=== PATIENT | female | born 1935 | race Caucasian/White ===

== ENCOUNTER → 2025-02-04 | Outpatient (CLI) | payer MEDICARE, SELFPAY ==
[2025-02-04 11:33] LABS: Basophils # (Auto) 0.1 Thou/mm3 (0.0-0.2); Basophils % (Auto) 1 % (0-2.5); Eosinophils # (Auto) 0.4 Thou/mm3 (0.0-0.5); Eosinophils % (Auto) 4 % (0-10); Hematocrit 43.5 % (36.0-46.0); Hemoglobin 14.6 g/dL (12.0-16.0); Immature Granulocytes % (Auto) 0 % (0-0); Immature Granulocytes Auto 0.02 Thou/mm3 (0.00-0.00); Lymphocytes # (Auto) 2.7 Thou/mm3 (1.0-4.8); Lymphocytes % (Auto) 29 % (10-50); Mean Corpuscular HGB Conc 33.6 g/dl (31.0-37.0); Mean Corpuscular Hemoglobin 31.1 pg (25.0-35.0); Mean Corpuscular Volume 93 fL (80-100); Monocytes # (Auto) 0.8 Thou/mm3 (0.0-0.8); Monocytes % (Auto) 8 % (0-12); Neutrophils # (Auto) 5.3 Thou/mm3 (1.8-7.7); Neutrophils % (Auto) 58 % (37-80); Nucleated Red Blood Cell % 0 /100 WBC (0); Platelet Count 234 Thou/mm3 (140-440); RDW Standard Deviation 43.7 fL (36.4-46.3); White Blood Count 9.2 Thou/mm3 (3.6-11.0)
[2025-02-04 11:54] LABS: Alanine Aminotransferase 25 U/L (10-49); Albumin, Serum 4.3 gm/dL (3.4-4.8); Alkaline Phosphatase 85 U/L (46-116); Anion Gap 7 (7-16); Aspartate Amino Transferase 26 U/L (0-34); BUN/Creatinine Ratio 24 Ratio (12-20); Bilirubin,Total 0.7 mg/dL (0.3-1.2); Blood Urea Nitrogen 24 mg/dL (9-23); Calcium 9.6 mg/dL (8.3-10.6); Calcium (Corrected) 9.6 mg/dL (8.5-10.1); Carbon Dioxide 26.5 mMol/L (20.0-31.0); Chloride 108 mMol/L (98-107); Cholesterol 173 mg/dL (132-200); Globulin 2.2 gm/dL (2.3-3.5); Glucose 155 mg/dL (74-106); HDL Cholesterol 43 mg/dL (40-60); LDL Cholesterol,Calculated 88 mg/dL (0-130); Osmolality,Calculated 288 (275-295); Potassium 4.2 mMol/L (3.4-5.1); Sodium 141 mMol/L (136-145); Total Protein 6.5 gm/dL (5.7-8.2); Triglycerides 209 mg/dL (30-150); eGFR 54 See Note
[2025-02-04 11:55] LABS: Vitamin B12 266 pg/mL (211-911)
== END | disposition home or self-care (01) ==
LOC: COPL 10:40
PROVIDERS: PCP Family Medicine; Referring Provider Family Medicine; Visit Provider Family Medicine
DX: E78.2 Mixed hyperlipidemia (principal); F01.50 Vascular dementia, unspecified severity, without behavioral disturbance, psychotic disturbance, mood disturbance, and anxiety; D64.9 Anemia, unspecified; I10 Essential (primary) hypertension
CPT/HCPCS: 36415; 80053; 80061; 82607; 85025

== ENCOUNTER → 2025-08-07 | Outpatient (CLI) | payer MEDICARE, SELFPAY ==
[2025-08-07 10:05] LABS: Glucose Estimated Average 151 mg/dL (80-131); Hemoglobin A1C 6.9 % Hgb (4.8-6.0)
[2025-08-07 10:13] LABS: Alanine Aminotransferase 24 U/L (10-49); Albumin, Serum 4.5 gm/dL (3.4-4.8); Albumin/Globulin Ratio 2.0 (1.2-2.2); Alkaline Phosphatase 85 U/L (46-116); Anion Gap 11 (7-16); Aspartate Amino Transferase 32 U/L (0-34); BUN/Creatinine Ratio 20 Ratio (12-20); Bilirubin,Total 0.7 mg/dL (0.3-1.2); Blood Urea Nitrogen 20 mg/dL (9-23); Calcium 10.1 mg/dL (8.3-10.6); Calcium (Corrected) 10.1 mg/dL (8.5-10.1); Carbon Dioxide 25.7 mMol/L (20.0-31.0); Cardiac Risk Estimate 4.1 RATIO (3.7-5.6); Chloride 108 mMol/L (98-107); Cholesterol 176 mg/dL (132-200); Creatinine (Component) 1.0 mg/dL (0.6-1.3); Free T4 (Free Thyroxine) 0.90 ng/dL (0.89-1.76); Globulin 2.2 gm/dL (2.3-3.5); Glucose 151 mg/dL (74-106); HDL Cholesterol 43 mg/dL (40-60); LDL Cholesterol,Calculated 91 mg/dL (0-130); Osmolality,Calculated 294 (275-295); Potassium 4.0 mMol/L (3.4-5.1); Sodium 145 mMol/L (136-145); Thyroid Stimulating Hormone 2.87 uIU/mL (0.55-4.78); Total Protein 6.7 gm/dL (5.7-8.2); Triglycerides 208 mg/dL (30-150); eGFR 54 See Note
== END | disposition home or self-care (01) ==
LOC: COPL 08:51
PROVIDERS: PCP Family Medicine; Referring Provider Family Medicine; Visit Provider Family Medicine
DX: Z00.00 Encounter for general adult medical examination without abnormal findings (principal); R73.01 Impaired fasting glucose; I10 Essential (primary) hypertension; E78.2 Mixed hyperlipidemia; Z83.1 Family history of other infectious and parasitic diseases
CPT/HCPCS: 36415; 80053; 80061; 83036; 84439; 84443

== ENCOUNTER 2025-09-20 12:59 | Emergency (ER) | payer MEDICARE, SELFPAY ==
[2025-09-20 13:01] VITALS: PULSE 74; RESP 18; O2SAT 95
[2025-09-20 13:02] VITALS: BP 156/74; PULSE 74; RESP 20; TEMP 36.4; O2SAT 98
--- NOTE | 2025-09-20 13:23 | EKG_ITS ---
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[id number] Requested By: Shawn Sandy Order Number: [id number] Reading MD: Shawn Sandy Measurements Intervals [place] Rate: 107 P: 36 CO: 161 QRS: -11 QRSD: 73 T: 35 QT: 371 QTc: 497 Interpretive Statements SINUS TACHYCARDIA LOW QRS VOLTAGE IN PRECORDIAL LEADS [QRS DEFLECTION < 1.0 mV IN CHEST LEADS] PATTERN CONSISTENT WITH PULMONARY DISEASE INFERIOR MYOCARDIAL INFARCTION , OF INDETERMINATE AGE [40+ ms Q WAVE AND/OR ST/T ABNORMALITY IN II/aVF] Compared to ECG 02/26/2019 15:23:21 Low QRS voltage now present Myocardial infarct finding now present Sinus rhythm no longer present /store/S0/[id number].pdf
--- NOTE | 2025-09-20 13:23 | XR_ITS ---
EXAMINATION: AP chest lateral 2 views TECHNIQUE: AP lateral chest 2 views Date and time: September 20, 2025, 1409 hours INDICATIONS: Chest pain after falling today. FINDINGS: Mild prominence left ventricle. No pneumothorax. Clavicles ribs appear intact. IMPRESSION: No pneumothorax or pulmonary contusion
--- NOTE | 2025-09-20 13:25 | EDNOTE_ITS ---
<Statement entered by Jeanine Wise MD - 09/28/25 14:15> As co-signing physician, I was present and available for consult prn. I concur with the plan and care as documented by the midlevel provider. ED General RME/HPI General Chief complaint: Shortness of Breath/Dyspnea Stated complaint: SOB Time Seen by Provider: 09/20/25 13:22 Source: EMS Arrival date/time: 09/20/25 12:59 CC: Reported shortness of breath HPI patient with dementia presents to the ER via EMS reports stable vital signs after family member caretaker was commenting on the patient being short of breath and cyanotic . The patient is awake alert oriented EMS report initial sats 95% was given 2 breathing treatments and route after reported hearing the chest being tight . Patient does not know why she is here. Patient is awake alert oriented currently sats are 97% on room air. Related Data Home Medications ?Medication ?Instructions ?Recorded ?Confirmed cholecalciferol (vitamin D3) 50 2,000 unit PO QDAY 01/1502/27/19 mcg (2,000 unit) capsule (Vitamin D3) memantine ER 28 mg-donepezil 10 mg 1 cap PO QDAY 02/2603/07/19 capsule sprinkle,ext.release 24 hr (Namzaric) mirtazapine 30 mg tablet 30 mg PO QDAY 02/26/1903/07 sertraline 50 mg tablet 50 mg PO QDAY 02/26/1903/07 Previous Rx's ?Medication ?Instructions ?Recorded ibuprofen 600 mg tablet 600 mg PO TID pain #30 tabs 02/27/19 acetaminophen 500 mg tablet 1,000 mg (2 x 500 mg) PO Q ID PRN 07/26/20 (Tylenol Extra Strength) fever or pain #30 tabs Allergies Allergy/AdvReac Type Severity Reaction Status Date / Time bee venom protein (honey bee) Allergy Verified 09/20/25 13:03 Review of Systems Review of Systems ROS Unobtainable: unobtainable due to mental status Past Medical History Past Medical History NEUROLOGIC: Negative Neurological Disorders or Seizures CARDIAC: Negative Cardiac Disorders, Hypercholesterolemia or Congestive Heart Failure RESPIRATORY: Negative Chronic Obstructive Pulmonary Disease (COPD) GASTROINTESTINAL: Negative Gastrointestinal Disorders or Colorectal Cancer GENITOURINARY: Negative Genitourinary Disorders or Renal Disease REPRODUCTIVE: Positive Previous Pregnancies (2 vaginal births); Negative Breast Cancer MUSCULOSKELETAL: Positive Musculoskeletal Disorders and Fractures (pelivs fracture no surgery) ENDOCRINE: Negative Endocrine Disorders, Diabetes Mellitus Type 1 or Diabetes Mellitus Type 2 HEMATOLOGIC: Negative Blood Disorders or Anemia OTHER HISTORY: Negative Falls, Blood Transfusions, Blood Transfusion Reaction, Anesthesia Reactions, Breast Cancer, Cervical Cancer or Colorectal Cancer Family History FAMILY HISTORY: Negative Family Cardiac Disorders Surgical History SURGICAL: Positive Tubal Ligation; Negative Cardiac Surgery, Abdominal Surgery, Joint Replacement or Section Social History SMOKING STATUS: Never smoker ED Exam Narrative Physical exam: [General: Appears not in any acute distress Head normocephalic HEENT: Eyes pupils are PERRLA EOMs are intact mouth pink moist membranes uvula is midline. All of the subsystems of HEENT are within acceptable limits Neck is supple nontender, no JVD no edema Chest equal chest rise nontender to palpation Respiratory: Clear to auscultation no wheezes crackles or rubs, no tachypnea CV: Rate rhythm is regular no murmurs rubs or clicks Abdomen is soft nontender no masses positive bowel sounds all 4 quadrants Back: No CVA tenderness no spinous process tenderness from cervical spine thoracic and lumbar spine Skin: Intact no petechiae rash induration ulceration or crepitus Extremities: Moving all extremity against resistance cap refill less than 2 seconds neurosensory intact Neuro: Awake alert oriented x1, self, Glascow coma 15 no focal deficits] Course Course Course Narrative: Patient has had no respiratory symptoms throughout her visit the emergency room this time comfortable discharging home with oxygen saturations greater than 95% on room air Quality Measures none Orders Category Date Time Status EKG (ED ONLY) *Do not use* NOW Care 09/20/25 13:23 Completed EKG (ED Only) Stat Exams 09/20/25 13:23 Draft XR chest 2V Stat Exams 09/20/25 13:23 Completed B-Type Natriuretic Peptide Stat Lab 09/20/25 14:45 Completed CBC Stat Lab 09/20/25 14:45 Completed Comprehensive Metabolic Panel Stat Lab 09/20/25 14:45 Completed Drug Screen,Urine Stat Lab 09/20/25 14:31 Completed LDH (Lactate Dehydrogenase) Stat Lab 09/20/25 14:45 Completed Magnesium Stat Lab 09/20/25 14:45 Completed Partial Thromboplastin Time Stat Lab 09/20/25 14:45 Completed Prothrombin Time with INR Stat Lab 09/20/25 14:45 Completed Troponin I Stat Lab 09/20/25 14:45 Completed Urinalysis, C/S if Indicated Stat Lab 09/20/25 14:31 Completed Vital Signs Vital signs: Vital Signs Temperature 97.6 F 09/20/25 13:02 Pulse Rate 74 09/20/25 13:02 Respiratory Rate 20 09/20/25 13:02 Blood Pressure 156/74 H 09/20/25 13:02 Pulse Oximetry (%) 98 09/20/25 13:02 Oxygen Delivery Method Room Air 09/20/25 13:02 Discharge Plan Plan Patient Disposition: HOME (Self Care) Patient condition on transfer: Stable Prescriptions/Referrals Prescriptions/Med Rec: No Action mirtazapine 30 mg Tablet 30 mg PO QDAY sertraline 50 mg Tablet 50 mg PO QDAY cholecalciferol (vitamin D3) [Vitamin D3] 2,000 unit Capsule 2,000 unit PO QDAY Namzaric 28-10 mg Capsule,Sprinkle,Er 24hr 1 cap PO QDAY ibuprofen 600 mg tablet 600 mg PO TID Qty: 30 0RF acetaminophen [Tylenol Extra Strength] 500 mg tablet 1,000 mg PO QID PRN (Reason: fever or pain) Qty: 30 0RF Referrals: Timo Kumari MD [Primary Care Provider, Family Practice] - In 1 week Problem List Clinical Impression: Cough, Shortness of breath Patient/Caregiver Discharge Instructions Education Materials: ED Shortness of Breath (Dyspnea) Additional Instructions: Follow-up with your primary care doctor if there is a worsening of symptoms return the emergency room for reevaluation. Print Language: Faroese Stand Alone Forms: [employer]isi Award Info., Patient Portal Info Letter PA/FIELD MARKETING COORDINATOR Supervising Physician PA/FIELD MARKETING COORDINATOR Supervising Physician: Shawn Plascencia ENP [facility] Clinical Information Provided by: patient and EMS Medical Records reviewed [facility] and EMS Meds/Rx considered, not ordered None Labs/Rad/Tests considered, not ordered None Chronic Illness/Social Conditions Explain: Dementia EKG Interpretation EKG #1: EKG Interpretation: EKG performed at 1335 shows a ventricular rate of 107 WV interval 161 QRS of 73 QTc of 434 sinus tachycardia. Labs Labs: interpreted by ia Lab(s) Interpretation(s): CBC shows no acute leukocytosis anemia thrombocytopenia Coags within acceptable limits CMP shows a potassium of 3.3 glucose of 127 no other electrolyte imbalances renal impairment no transaminitis or T. bili elevation Troponin is unremarkable BNP is within acceptable limits Urine is negative for UTI UDS is negative Imaging Imaging interpretation: interpreted by me Imaging Interpretation(s): Chest x-ray is negative for any acute finding Medication Administration(s) none Diagnosis Differential Diagnosis ED Complaint MDM: COPD CHF pneumonia
--- NOTE | 2025-09-20 13:40 | PC.NURSE ---
Pt. here from home to room 18, pt.'s niece Edna is bedside, she states pt. has dementia and has 24 hour care at home, Edna states that pt.'s behavioral science chair called EMS because pt. started coughing and turned blue. Edna states pt. has not been coughing, Edna states yesterday she and pt. ate at [employer] and pt. was not coughing, they had a great day together. Edna states pt. loves chocolate. No s/s of distress noted at this time. Pt. not coughing at this time.
[2025-09-20 13:46] VITALS: BMI 22.4
[2025-09-20 14:35] LABS: Collection Type, Urine Clean Catch
[2025-09-20 14:52] LABS: Bilirubin,Urine Negative (Negative); Blood,Urine Negative (Negative); Clarity,Urine Clear (Clear/Hazy); Color,Urine Lt-Yellow (Lt Yel-Yel); Culture Indicated,Urine Not Indicated; Glucose, Urine Trace (Negative); Ketones,Urine Negative (Negative); Leukocyte Esterase,Urine Negative (Negative); Nitrite,Urine Negative (Negative); PH,Urine 6.0 (5.0-7.0); Protein,Urine Negative (Neg - Trace); RBC,Urine 1 /hpf (0-3); Specific Gravity,Urine 1.018 (1.001-1.035); Squamous Epithelial Cell,Urine < 1 /hpf (0-5); Urobilinogen,Urine Negative mg/dL (0.0-1.0); WBC,Urine < 1 /hpf (0-5)
[2025-09-20 14:55] LABS: Basophils # (Auto) 0.0 Thou/mm3 (0.0-0.2); Basophils % (Auto) 0 % (0-2.5); Eosinophils # (Auto) 0.1 Thou/mm3 (0.0-0.5); Eosinophils % (Auto) 2 % (0-10); Hematocrit 43.2 % (36.0-46.0); Hemoglobin 13.9 g/dL (12.0-16.0); Immature Granulocytes Auto 0.03 Thou/mm3 (0.00-0.00); Lymphocytes # (Auto) 1.7 Thou/mm3 (1.0-4.8); Lymphocytes % (Auto) 19 % (10-50); Mean Corpuscular HGB Conc 32.2 g/dl (31.0-37.0); Mean Corpuscular Hemoglobin 30.0 pg (25.0-35.0); Mean Corpuscular Volume 93 fL (80-100); Monocytes # (Auto) 0.7 Thou/mm3 (0.0-0.8); Monocytes % (Auto) 8 % (0-12); Neutrophils # (Auto) 6.3 Thou/mm3 (1.8-7.7); Neutrophils % (Auto) 71 % (37-80); Nucleated Red Blood Cell # 0.00 Thou/mm3 (0.00-0.00); Nucleated Red Blood Cell % 0 /100 WBC (0); Platelet Count 205 Thou/mm3 (140-440); RDW Standard Deviation 43.6 fL (36.4-46.3); Red Blood Count 4.64 Miln/mm3 (4.00-5.20); White Blood Count 9.0 Thou/mm3 (3.6-11.0)
[2025-09-20 15:03] LABS: Amphetamine/Methamp Scrn,U Negative (Negative); Barbiturate Screen,Urine Negative (Negative); Benzodiazepines Screen,Urine Negative (Negative); Benzoylecgonine Screen, Ur Negative (Negative); Fentanyl Screen,Urine Negative (Negative); Opiate Screen,Urine Negative (Negative); THC Screen,Urine Negative (Negative)
[2025-09-20 15:10] LABS: INR 1.1 (0.9-1.3); Partial Thromboplastin Time 30.8 Seconds (22.0-36.0); Prothrombin Time 11.3 Seconds (9.0-12.2)
[2025-09-20 15:12] LABS: B-Type Natriuretic Peptide 50 pg/mL (0-100)
[2025-09-20 15:13] LABS: Alanine Aminotransferase 30 U/L (10-49); Albumin, Serum 4.6 gm/dL (3.4-4.8); Albumin/Globulin Ratio 2.2 (1.2-2.2); Alkaline Phosphatase 89 U/L (46-116); Anion Gap 13 (7-16); Aspartate Amino Transferase 47 U/L (0-34); BUN/Creatinine Ratio 14 Ratio (12-20); Bilirubin,Total 0.6 mg/dL (0.3-1.2); Blood Urea Nitrogen 14 mg/dL (9-23); Calcium 9.8 mg/dL (8.3-10.6); Calcium (Corrected) 9.8 mg/dL (8.5-10.1); Carbon Dioxide 27.2 mMol/L (20.0-31.0); Chloride 104 mMol/L (98-107); Creatinine (Component) 1.0 mg/dL (0.6-1.3); Estimated Creatinine Clearance 35.0 mL/min (>60); Globulin 2.1 gm/dL (2.3-3.5); Glucose 127 mg/dL (74-106); LDH (Lactate Dehydrogenase) 164 U/L (120-246); Magnesium 2.1 mg/dL (1.6-2.6); Osmolality,Calculated 289 (275-295); Potassium 3.3 mMol/L (3.4-5.1); Sodium 144 mMol/L (136-145); Total Protein 6.7 gm/dL (5.7-8.2); Troponin I < 0.020 ng/mL (0.0-0.045); eGFR 54 See Note
[2025-09-20 16:19] VITALS: BP 163/79; PULSE 98; RESP 22; TEMP 36.4; O2SAT 98
[2025-09-20 17:25] VITALS: BP 168/97; PULSE 96; RESP 20; TEMP 36.6; O2SAT 97
== END 2025-09-20 17:29 | disposition home or self-care (01) ==
PROVIDERS: Registered Nurse General Practice; Emergency Provider Emergency Medicine; PCP Family Medicine
DX: R06.02 Shortness of breath (principal); R05.9 Cough, unspecified; F03.90 Unspecified dementia, unspecified severity, without behavioral disturbance, psychotic disturbance, mood disturbance, and anxiety; Z79.1 Long term (current) use of non-steroidal anti-inflammatories (NSAID)
CPT/HCPCS: 36415; 51701; 71046; 80053; 80307; 81001; 83615; 83735; 83880; 84484; 85025; 85610; 85730; 93005; 99282

== ENCOUNTER → 2025-11-11 | Outpatient (CLI) | payer MEDICARE, SELFPAY ==
[2025-11-11 09:00] LABS: Collection Type, Urine Clean Catch
[2025-11-11 09:51] LABS: Amorphous Crystals,Urine Present (Absent); Bacteria,Urine 1+; Bilirubin,Urine Negative (Negative); Blood,Urine 3+ (Negative); Calcium Oxalate Crystals,Urine 2+; Color,Urine Yellow (Lt Yel-Yel); Glucose, Urine Negative (Negative); Hyaline Casts,Urine < 1 /hpf (0-1); Ketones,Urine Negative (Negative); Leukocyte Esterase,Urine Positive (Negative); Nitrite,Urine Positive (Negative); PH,Urine 5.5 (5.0-7.0); Protein,Urine 1+ (Neg - Trace); RBC,Urine 195 /hpf (0-3); Specific Gravity,Urine 1.026 (1.001-1.035); Squamous Epithelial Cell,Urine 8 /hpf (0-5); Urobilinogen,Urine Negative mg/dL (0.0-1.0); WBC,Urine 257 /hpf (0-5)
[2025-11-11 10:36] LABS: Clarity,Urine Hazy (Clear/Hazy)
== END | disposition home or self-care (01) ==
LOC: SLDO 08:47
PROVIDERS: Referring Provider Family Medicine; Visit Provider Family Medicine
DX: R31.9 Hematuria, unspecified (principal); D55.9 Anemia due to enzyme disorder, unspecified; R41.0 Disorientation, unspecified
CPT/HCPCS: 81001; 87077; 87086; 87186

== ENCOUNTER → 2025-11-24 | Outpatient (CLI) | payer MEDICARE, SELFPAY ==
[2025-11-24 12:00] LABS: Basophils # (Auto) 0.0 Thou/mm3 (0.0-0.2); Basophils % (Auto) 0 % (0-2.5); Eosinophils # (Auto) 0.3 Thou/mm3 (0.0-0.5); Eosinophils % (Auto) 4 % (0-10); Hematocrit 45.5 % (36.0-46.0); Hemoglobin 14.5 g/dL (12.0-16.0); Immature Granulocytes Auto 0.04 Thou/mm3 (0.00-0.00); Lymphocytes # (Auto) 1.6 Thou/mm3 (1.0-4.8); Lymphocytes % (Auto) 20 % (10-50); Mean Corpuscular HGB Conc 31.9 g/dl (31.0-37.0); Mean Corpuscular Hemoglobin 29.8 pg (25.0-35.0); Mean Corpuscular Volume 93 fL (80-100); Monocytes # (Auto) 0.6 Thou/mm3 (0.0-0.8); Monocytes % (Auto) 8 % (0-12); Neutrophils # (Auto) 5.4 Thou/mm3 (1.8-7.7); Neutrophils % (Auto) 68 % (37-80); Nucleated Red Blood Cell # 0.00 Thou/mm3 (0.00-0.00); Nucleated Red Blood Cell % 0 /100 WBC (0); Platelet Count 280 Thou/mm3 (140-440); RDW Standard Deviation 45.7 fL (36.4-46.3); Red Blood Count 4.87 Miln/mm3 (4.00-5.20); White Blood Count 8.0 Thou/mm3 (3.6-11.0)
[2025-11-24 12:32] LABS: Alanine Aminotransferase 27 U/L (10-49); Albumin, Serum 4.3 gm/dL (3.4-4.8); Albumin/Globulin Ratio 1.7 (1.2-2.2); Alkaline Phosphatase 94 U/L (46-116); Anion Gap 13 (7-16); Aspartate Amino Transferase 45 U/L (0-34); BUN/Creatinine Ratio 15 Ratio (12-20); Bilirubin,Total 0.7 mg/dL (0.3-1.2); Blood Urea Nitrogen 16 mg/dL (9-23); Calcium 9.7 mg/dL (8.3-10.6); Calcium (Corrected) 9.7 mg/dL (8.5-10.1); Carbon Dioxide 26.3 mMol/L (20.0-31.0); Chloride 105 mMol/L (98-107); Creatinine (Component) 1.1 mg/dL (0.6-1.3); Free T4 (Free Thyroxine) 0.95 ng/dL (0.89-1.76); Globulin 2.6 gm/dL (2.3-3.5); Glucose 137 mg/dL (74-106); Osmolality,Calculated 290 (275-295); Potassium 4.5 mMol/L (3.4-5.1); Sodium 144 mMol/L (136-145); Thyroid Stimulating Hormone 2.36 uIU/mL (0.55-4.78); Total Protein 6.9 gm/dL (5.7-8.2); Vitamin B12 329 pg/mL (211-911); Vitamin D 25 Hydroxy Total 23.8 ng/mL (7.3-40.2); eGFR 48 See Note
[2025-11-24 12:46] LABS: Syphilis Nonreactive (Nonreactive)
== END | disposition home or self-care (01) ==
LOC: COPL 11:07
PROVIDERS: PCP Family Medicine; Referring Provider Family Medicine; Visit Provider Family Medicine
DX: R31.9 Hematuria, unspecified (principal); D55.9 Anemia due to enzyme disorder, unspecified; R41.0 Disorientation, unspecified
CPT/HCPCS: 36415; 80053; 81001; 82306; 82607; 84439; 84443; 85025; 86780; 87086

== ENCOUNTER → 2025-11-26 | Outpatient (CLI) | payer MEDICARE, SELFPAY ==
[2025-11-26 08:24] LABS: Collection Type, Urine Clean Catch
[2025-11-26 11:44] LABS: Amorphous Crystals,Urine Present (Absent); Bilirubin,Urine Negative (Negative); Blood,Urine Trace (Negative); Clarity,Urine Turbid (Clear/Hazy); Color,Urine Yellow (Lt Yel-Yel); Glucose, Urine Negative (Negative); Ketones,Urine Negative (Negative); Leukocyte Esterase,Urine Positive (Negative); Nitrite,Urine Negative (Negative); PH,Urine 6.0 (5.0-7.0); Protein,Urine Trace (Neg - Trace); RBC,Urine 27 /hpf (0-3); Specific Gravity,Urine 1.022 (1.001-1.035); Squamous Epithelial Cell,Urine 41 /hpf (0-5); Urobilinogen,Urine Negative mg/dL (0.0-1.0); WBC,Urine 332 /hpf (0-5)
== END | disposition home or self-care (01) ==
LOC: SLDO 08:14
PROVIDERS: Referring Provider Family Medicine; Visit Provider Family Medicine
DX: N30.00 Acute cystitis without hematuria (principal)
CPT/HCPCS: 81001; 87077; 87086; 87186